=== PATIENT | female | born 2005 | race Caucasian/White ===

== ENCOUNTER 2025-06-08 19:35 | Emergency (ER) | payer OTHER, SELFPAY ==
[2025-06-08 19:53] VITALS: BP 130/55; PULSE 99; RESP 16; TEMP 36.9; O2SAT 99; BMI 22.0
[2025-06-08 20:12] VITALS: BMI 22.0
--- NOTE | 2025-06-08 21:26 | DI.RAD.S_ITS ---
PROCEDURE: XR CHEST 1V INDICATIONS: Chest Pain TECHNIQUE: One view of the chest was acquired. COMPARISON: None. FINDINGS: Surgical changes and devices: None. Lungs and pleura: Lungs are clear. No pleural effusions or pneumothorax. Mediastinum: Mediastinal contours appear normal. Heart size is normal. Bones and chest wall: No suspicious bony lesions. Overlying soft tissues appear unremarkable. IMPRESSION: No acute cardiopulmonary abnormalities or focal consolidation. Dictated by: Satnam Ramírez M.D. on 06/08/2025 at 22:22 Approved by: Satnam Ramírez M.D. on 06/08/2025 at 22:23
--- NOTE | 2025-06-08 21:26 | EKG_ITS ---
[address] [address] Test Date: 2025-06-08 Pat Name: Love Garcia Department: [facility] Room: Gender: Female [employer]: KAZ : 2005 Requested By: Order Number: [id number] Reading MD: Roberto Carlos Garner Measurements Intervals [place] Rate: 76 P: 57 MI: 160 QRS: 54 QRSD: 80 T: 14 QT: 344 QTc: 387 Interpretive Statements Sinus rhythm with marked sinus arrhythmia Electronically Signed On 06-10-2025 13:30:46 PST by Roberto Carlos Garner
[2025-06-08 21:36] LABS: INR 1.0 (0.9-1.3); Prothrombin Time 11.6 SECONDS (9.4-12.5)
[2025-06-08 21:39] LABS: Alanine Aminotransferase 37 IU/L (<35); Albumin 4.7 g/dL (3.5-5.0); Albumin Globulin Ratio 1.6 (1.0-2.8); Alkaline Phosphatase 75 U/L (38-126); Blood Urea Nitrogen 8 mg/dL (7-17); Calcium 9.5 mg/dL (8.4-10.2); Carbon Dioxide 24 mmol/L (22-32); Chloride 106 mmol/L (98-107); Creatine Kinase 87 U/L (30-135); Estimated Glomerular Filt Rate > 60 mL/min (>60); Globulin 2.9 g/dL (1.7-4.1); Glucose 125 mg/dL (70-99); HEMOLYSIS < 15 (0-50); Lipase 95 U/L (23-300); Magnesium 1.8 mg/dL (1.6-2.3); PTT Partial Thromboplastin Tim 27 SECONDS (25.1-36.5); Potassium 3.8 mmol/L (3.4-5.1); Sodium 139 mmol/L (137-145); Total Protein 7.6 g/dL (6.3-8.2)
[2025-06-08 21:43] LABS: Add Manual Diff / Slide Review NO; Hematocrit 42.2 % (36-46); Hemoglobin 14.2 g/dL (12.0-16.0); Lymphocytes Absolute Auto 2100 /uL (1100-4500); Mean Corpuscular HGB Conc 33.7 % (30-36); Mean Corpuscular Hemoglobin 26.9 PG (26-34); Mean Corpuscular Volume 79.7 fL (80-100); Platelet Count 269 X10^3/uL (150-400)
[2025-06-08 21:51] LABS: NT-proBNP (BNP-Adult 18+) < 20 pg/mL (<125); Troponin I 0.015 ng/mL (0.01-0.034)
--- NOTE | 2025-06-08 22:49 | ED_ITS ---
HPI - Arrhythmia/Palpitations General Chief Complaint: Arrhythmia/Palpitations Stated Complaint: Elevated hr for a few days, oxygen levels dropped Time Seen by Provider: 06/08/25 22:49 Source: patient Mode of arrival: Ambulatory History of Present Illness HPI narrative: Patient is born female but prefers name Jamir and he him pronouns presenting to day with heart palpitations. Reports that he has had elevated heart rate ongoing for the last couple of days. It started when he had an asthma attack a couple days ago but has not really recovered. Although reports breathing has improved. Has been checking a pulse oximeter at home says that oxygen level has been as low as 92% and has had a heart rate of 135 today. However 2 days ago when he had his at asthma attack of heart rate was in the 160s. He did not pass out or lose consciousness today. Not having any significant shortness of breath today. Being worked up for mast cell activation is trying to get it tilt table test. Family is requesting that a tryptase be ordered to help with diagnosis. No fever no chills has chronic ongoing abdominal pain not any worse today. Also has a chronic UTI on Macrobid. Related Data Allergies Allergy/AdvReac Type Severity Reaction Status Date / Time No Known Drug Allergies Allergy Verified 06/08/25 19:54 Patient History Social History Smoking Status: Current every day smoker Smoking Status: Current every day smoker tobacco type: vaping Exam Initial Vital Signs Initial Vital Signs: Vital Signs Temperature 98.5 F 06/08/25 19:53 Pulse Rate 99 H 06/08/25 19:53 Respiratory Rate 16 06/08/25 19:53 Blood Pressure 130/55 L 06/08/25 19:53 Pulse Oximetry 99 06/08/25 19:53 Oxygen Delivery Method Room Air 06/08/25 19:53 GENERAL: Alert well-appearing and in no acute distress. HEENT: Head atraumatic,EOMI, pupils reactive, face symmetric, moist mucous membranes CARDIOVASCULAR: Regular rate and rhythm without murmurs, rubs or gallops. RESPIRATORY: Breath sounds equal bilaterally, no wheezes rales or rhonchi. ABDOMEN: Soft, nontender. Normoactive bowel sounds all 4 quadrants. No guarding or rebound. EXTREMITIES: Normal range of motion, no clubbing or edema. Neurovascularly intact NEUROLOGICAL: Alert and oriented x4.Normal gait and speech. Cranial nerves II through XII grossly intact. SKIN: Warm, dry, no laceration, no petechiae, no rashes or lesions. Course Orders Ordered: ED Orders 06/08/25 20:10 Complete Blood Count AUTO DIFF Stat Comprehensive Metabolic Panel Stat D Dimer Stat Lipase Stat Magnesium Stat NT-proBNP (BNP-Adult 18+) Stat PTT Partial Thromboplastin Meet Stat Prothrombin Time INR Stat Troponin & CK Cardiac Panel Stat Tryptase Stat 06/08/25 21:26 XR chest 1V Stat EKG-12 Lead Stat Vital Signs Vital signs: Vital Signs - 8 hr 06/08/25 19:53 06/08/25 23:56 06/08/25 23:58 Temperature 98.5 F Pulse Rate 99 H 95 H Respiratory Rate 16 Blood Pressure 130/55 L 140/67 Pulse Oximetry 99 99 Oxygen Delivery Method Room Air 06/09/25 00:00 Temperature Pulse Rate 101 H Respiratory Rate Blood Pressure Pulse Oximetry 100 Oxygen Delivery Method MDM - Arrhythmia/Palpitations Lab Data 06/08/25 20:10 06/08/25 20:10 Labs: Lab Results 06/08/25 Range/Units 20:10 WBC 8.0 (4.5-11.0) X10^3/uL RBC 5.29 H (4.0-5.2) X10^6/uL Hgb 14.2 (12.0-16.0) g/dL Hct 42.2 (36-46) % MCV 79.7 L (80-100) fL MCH 26.9 (26-34) PG MCHC 33.7 (30-36) % RDW 16.6 H (11.6-14.8) % Plt Count 269 (150-400) X10^3/uL Neut % (Auto) 62.5 (50-75) % Lymph % (Auto) 26.6 (25-40) % Towns % (Auto) 7.9 (3-14) % Eos % (Auto) 2.5 (2-4) % Baso % (Auto) 0.5 (0-2) % Neut # (Auto) 5000 (6915-5597) /uL Lymph # (Auto) 2100 (4334-8532) /uL Towns # (Auto) 600 (0-900) /uL Eos # (Auto) 200 (0-450) /uL Baso # (Auto) 0 (0-100) /uL PT 11.6 (9.4-12.5) SECONDS INR 1.0 (0.9-1.3) APTT 27 (25.1-36.5) SECONDS D-Dimer 309 (<500) ng/ml Sodium 139 (137-145) mmol/L Potassium 3.8 (3.4-5.1) mmol/L Chloride 106 (98-107) mmol/L Carbon Dioxide 24 (22-32) mmol/L BUN 8 (7-17) mg/dL Creatinine 0.79 (0.52-1.04) mg/dL Estimated GFR > 60 (>60) mL/min BUN/Creatinine Ratio 10.1 (6-22) Glucose 125 H (70-99) mg/dL Calcium 9.5 (8.4-10.2) mg/dL Magnesium 1.8 (1.6-2.3) mg/dL Total Bilirubin 0.3 (0.2-1.3) mg/dL AST 37 H (14-36) IU/L ALT 37 H (<35) IU/L Alkaline Phosphatase 75 (38-126) U/L Total Creatine Kinase 87 (30-135) U/L Troponin I 0.015 (0.01-0.034) ng/mL NT-Pro-B Natriuret Pep < 20 (<125) pg/mL Total Protein 7.6 (6.3-8.2) g/dL Albumin 4.7 (3.5-5.0) g/dL Globulin 2.9 (1.7-4.1) g/dL Albumin/Globulin Ratio 1.6 (1.0-2.8) Lipase 95 (23-300) U/L Point of Care Testing Test Results Negative Urine Dip Bedside Urine Glucose Negative Bedside Urine Bilirubin - Negative Bedside Urine Ketone - Negative Urine Specific [place] 1.015 Bedside Urine Occult Blood - Negative Bedside Urine pH 6.0 Bedside Urine Protein - Negative Bedside Urine Urobilinogen - Negative Bedside Urine Nitrite - Negative Bedside Urine Leukocytes - Negative Esterase Imaging Data Chest x-ray: Radiologist's Impresson: PROCEDURE: XR CHEST 1V INDICATIONS: Chest Pain TECHNIQUE: One view of the chest was acquired. COMPARISON: None. FINDINGS: Surgical changes and devices: None. Lungs and pleura: Lungs are clear. No pleural effusions or pneumothorax. Mediastinum: Mediastinal contours appear normal. Heart size is normal. Bones and chest wall: No suspicious bony lesions. Overlying soft tissues appear unremarkable. IMPRESSION: No acute cardiopulmonary abnormalities or focal consolidation. Dictated by: Satnam Ramírez M.D. 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 Pertinent findings: CBC no leukocytosis no anemia CMP no electrolyte abnormality no ESMER D-dimer of 309 Bilirubin 0.3 AST 37 ALT 37 lipase 95 Troponin is negative BNP is less than 20 Tryptase pending Independently reviewed EKG as above Sinus rhythm no ischemia significant tachycardia PVC or other arrhythmia Imaging studies independently reviewed: Chest x-ray no acute cardiopulmonary process Consultations: [ ] Treatments: None Re-evaluations: [ ] Discussion: Patient 19-year-old presenting today with palpitations. Heart rate does go up and down while talking on the monitor but is generally stable. X-ray is negative blood work overall reassuring. D-dimer is negative is unlikely to be a pulmonary embolism. Patient's heart rate does fluctuate it goes up and down while in the emergency department. Workup is overall reassuring. It is discussion need ongoing outpatient follow-up and further evaluation. Family requested that tryptase be sent to help with definitive diagnosis. It will take couple of days it is a send out they are aware of this. 2344 complaining of left hand being cold. Good pulse able to move fingers offered warm blanket, it is slightly cool however upon re-evaluation it is pink remained dry. Suspect a vasospasm Discussed all results with family. They are frustrated with ongoing medical issues and no answers. I have explained they need continued outpatient workup. Discharge Plan Departure Patient Disposition: Home Clinical Impression: Palpitations Instructions: DI for Palpitations Activity Restrictions/Additional Instructions: *You have been diagnosed with palpitations *What to do: At this time tryptase is pending you can look in your portal for your results and give it to your doctors. Blood work today is overall reassuring I do recommend that you get a Holter monitor or ZIO patch to help monitor your heart rate consistently. *Continue to take medications as directed Albuterol as needed for shortness of *Follow up with your primary care provider in 2-3 days or call [phone] *Return to ER if you should have dizziness lightheadedness passing out elevated heart rate 140 or greater for more than 1 hour or any new, worsening or concerning symptoms Stand Alone Forms: Patient Portal/API
[2025-06-08 23:56] VITALS: BP 140/67
[2025-06-08 23:58] VITALS: PULSE 95; O2SAT 99
[2025-06-09] VITALS: PULSE 101; O2SAT 100
== END 2025-06-09 00:21 | disposition home or self-care (01) ==
PROVIDERS: Emergency Provider Emergency Medicine
DX: R00.2 Palpitations (principal); R94.31 Abnormal electrocardiogram [ECG] [EKG]
CPT/HCPCS: 36415; 71045; 80053; 81003; 81025; 82550; 83520; 83690; 83735; 83880; 84484; 85025; 85379; 85610; 85730; 93005; 99283; 99284